=== PATIENT | female | born 1955 | race Caucasian/White ===

== ENCOUNTER → 2017-02-14 | Outpatient (CLI) | payer OTHER | LOC: BMCIMAGING 14:21 | DX: Z12.31 Encounter for screening mammogram for malignant neoplasm of breast (principal) | CPT/HCPCS: G0202 ==

== ENCOUNTER → 2017-07-23 | Outpatient (CLI) | payer OTHER | LOC: BMCIMAGING 14:51 | PROVIDERS: ATTEND Family Medicine | DX: M54.2 Cervicalgia (principal); R22.1 Localized swelling, mass and lump, neck | CPT/HCPCS: 76536-PO ==

== ENCOUNTER 2017-09-23 10:15 | Observation (INO) | payer OTHER ==
--- NOTE | 2017-09-23 10:26 | PDHPUP ---
History & Physical Update H&P update statement: This history and physical update is based on an assessment of the patient which was completed after admission or registration (within 24 hours), but prior to the surgery/procedure. H&P update: H&P reviewed & patient examined, no change in patient's condition since H&P completed
--- NOTE | 2017-09-23 10:27 | POSTOPPROG ---
Post Op Note Date of Operation: 09/23/17 Surgeon: Jordan Mantilla Financial Examiner: Wesley López Anesthesia: GET(General Endotracheal) Pre-op Diagnosis: Right thyroid tumor Post-op Diagnosis: Same Procedure: Total thyroidectomy, CLND, fiberoptic laryngoscopy Inf/Abcess present in the surg proc area at time of surgery?: No EBL: Minimal Specimen(s): thyroid, nodes
[2017-09-23] MEDS ORDERED: LR 1,000 ML IV ONE (10:42)
[2017-09-23] MEDS ORDERED: BUPIVACAINE 0.5% 30 ML SDV ONE (11:18)
[2017-09-23] MEDS ORDERED: PROPOFOL/EMULSION 500 MG/50 ML BOTTLE IV ONE (12:06)
[2017-09-23] MEDS ORDERED: MIDAZOLAM 2 MG/2 ML VIAL ONE (12:07)
[2017-09-23] MEDS ORDERED: fentaNYL 100 MCG/2 ML INJ ONE ×3 (12:07→15:07)
[2017-09-23] MEDS ORDERED: LR 500 ML IV PRN (12:59)
[2017-09-23] MEDS ORDERED: ALBUTEROL 3 ML DEYVIAL IH PRN (12:59)
[2017-09-23] MEDS ORDERED: DIAZEPAM 10 MG/2 ML SYR IVP PRN (12:59)
[2017-09-23] MEDS ORDERED: PROMETHAZINE HCL 25 MG/ML INJ IVP PRN (12:59)
[2017-09-23] MEDS ORDERED: NALOXONE HCL 0.4 MG/ML INJ IVP PRN (12:59)
[2017-09-23] MEDS ORDERED: METOCLOPRAMIDE 10 MG/2 ML VIAL IVP PRN (12:59)
[2017-09-23] MEDS ORDERED: ONDANSETRON 4 MG/2 ML VIAL IVP PRN ×2 (12:59→14:59)
[2017-09-23] MEDS ORDERED: PHENYLEPHRINE HCL 100 MCG/ML SYR IVP PRN (12:59)
[2017-09-23] MEDS ORDERED: DEXAMETHASONE 4 MG/ML VIAL IVP PRN (12:59)
--- NOTE | 2017-09-23 12:59 | PDANEPAE ---
ANE Past Medical History - Cardiovascular History Hx Hypertension: Yes Hx Arrhythmias: No Hx Chest Pain: No Hx Coronary Artery / Peripheral Vascular Disease: No Hx CHF / Valvular Disease: No Hx Palpitations: No Cardiovascular History Comment: on Crestor - Pulmonary History Hx COPD: No Hx Asthma/Reactive Airway Disease: No Hx Recent Upper Respiratory Infection: No Hx Oxygen in Use at Home: No Hx Sleep Apnea: No Sleep Apnea Screening Result - Last Documented: Negative - Neurologic History Hx Cerebrovascular Accident: No Hx Seizures: No Hx Dementia: No - Endocrine History Hx Diabetes: Yes Endocrine History Comment: NIDDM type 2- well controlled - Renal History Hx Renal Disorders: No - Liver History Hx Hepatic Disorders: No - Neurological & Psychiatric Hx Hx Neurological and Psychiatric Disorders: No - Cancer History Hx Cancer: Yes Cancer History Comment: papilarry thryoid CA - Congenital Disorder History Hx Congenital Disorders: No - GI History Hx Gastrointestinal Disorders: Yes Gastrointestinal History Comment: diverticulitis-April "infected" - Other Health History Other Health History: thyroid mass-nodule. - Chronic Pain History Chronic Pain: No - Surgical History Prior Surgeries: R trigger finger/carpal tunl 2-17. T.L. 1991 ANE Review of Systems Review of Systems: - Exercise capacity METS (RN): 4 METS ANE Patient History - Allergies Allergies/Adverse Reactions: No Known Allergies Allergy (Unverified 09/15/17 11:43) - Home Medications Home Medications: Aspirin 81mg (*) 09/15/17 [Last Taken 09/14/17 06:00] Levothyroxine 09/15/17 [Last Taken 09/22/17 09:00] Lisinopril 09/15/17 [Last Taken 09/22/17 09:00] Metformin HCl 09/15/17 [Last Taken 09/22/17 19:00] Multivitamin 09/15/17 [Last Taken 09/16/17] Rosuvastatin Calcium 09/15/17 [Last Taken 09/22/17 09:00] - NPO status NPO Since - Liquids (Date): 09/22/17 NPO Since - Liquids (Time): 19:00 NPO Since - Solids (Date): 09/22/17 NPO Since - Solids (Time): 19:00 - Smoking Hx Smoking Status: Never smoked ANE Labs/Vital Signs - Vital Signs Blood Pressure: 135/69 Heart Rate: 85 Respiratory Rate: 17 O2 Sat (%): 94 Height: 162.56 cm Weight: 88.451 kg ANE Physical Exam - Airway Neck exam: FROM, increased neck circumference, short neck Mallampati Score: Class 2 Mouth exam: normal dental/mouth exam, small mouth opening - Pulmonary Pulmonary: no respiratory distress, no rales or rhonchi, clear to auscultation, reduced air movement - Cardiovascular Cardiovascular: regular rate and rhythym, no murmur, rub, or gallop - ASA Status ASA Status: II ANE Anesthesia Plan Anesthesia Plan: general endotracheal anesthesia
[2017-09-23] MEDS ORDERED: DEXAMETHASONE 4 MG/ML VIAL ONE (13:09)
[2017-09-23] MEDS ORDERED: ROCURONIUM 50 MG/5 ML VIAL ONE ×2 (13:09→13:26)
[2017-09-23] MEDS ORDERED: ONDANSETRON 4 MG/2 ML VIAL ONE (13:09)
[2017-09-23] MEDS ORDERED: LIDOCAINE 2% 5 ML SDV ONE (13:09)
[2017-09-23] MEDS ORDERED: LIDOCAINE 2% JELLY 5 ML TUBE ONE (13:09)
[2017-09-23] MEDS ORDERED: METOCLOPRAMIDE 10 MG/2 ML VIAL ONE (13:09)
[2017-09-23] MEDS ORDERED: SUGAMMADEX SODIUM 200 MG/2 ML VIAL IVP ONE (13:09)
[2017-09-23] MEDS ORDERED: DEXMEDETOMIDINE/NS 4MCG/ML 50 ML BTL IV ONE (13:19)
[2017-09-23] MEDS ORDERED: CALCIUM CHLORIDE 1 GM/10 ML INJ ONE (13:30)
[2017-09-23] MEDS ORDERED: ACETAMINOPHEN 325 MG TAB PO PRN (14:59)
[2017-09-23] MEDS ORDERED: HYDROCODONE/APAP 5/325 TAB PO PRN (14:59)
--- NOTE | 2017-09-23 14:59 | POSTANESTH ---
Post Anesthetic Evaluation Cardiovascular Status: Normal, Stable, Similar to Pre-Op Cond Respiratory Status: Normal, Stable, Similar to Pre-op Cond. Level of Consciousness/Mental Status: Mildly Sleepy, Arousable Pain Control: Adequate, Prn Tx Ordered Nausea/Vomiting Control: Adequate, Prn Tx Ordered Complications Possibly Related to Anesthesia: None Noted
[2017-09-23] MEDS: fentaNYL 100 MCG/2 ML INJ IVP PRN ×2 (15:10→15:21)
--- NOTE | 2017-09-23 17:03 | ASDISCHSUM ---
Discharge Information Plan Status:Home with No Needs Medically Cleared to Leave:09/22/2017 Discharge Date:09/22/2017 CM D/C Disposition:Home, Routine, Self-Care ADT D/C Disposition:Home, Routine, Self-Care Projected Discharge Date:09/23/2017 06:00 PM Transportation at D/C:Family Discharge Delay Reason: Follow-Up Date:09/23/2017 06:00 PM Discharge Slot: Final Diagnosis:THyroid neoplasm Placement Information Patient Contact Information Contact Name:KAPIL Relationship: Address:[facility] [address] City:[place] Alternate Phone: [facility]/Zip Code:[place] [address] Email: Financial Information Financial Class:HMO and PPO Plans Primary Plan Desc:[facility] SERVI Primary Plan Number:[id number] Secondary Plan Desc: Secondary Plan Number: Assessment Information Intervention Information
--- NOTE | 2017-09-23 17:04 | ASMTCMCOM ---
CM Note CM Note Notes: Patient discharging home following surgical procedure related to Thyroid neoplasm. Patient with no additional Case management needs apparent at this time. Date Signed: 09/23/2017 05:04 PM Electronically Signed By:LORI Burton
[2017-09-23] MEDS: KETOROLAC 15 MG/1 ML SDV IVP SCH ×2 (18:21→23:46)
--- NOTE | 2017-09-23 21:31 | GOP ---
[f rep st] OPERATIVE REPORT DATE OF OPERATION: 09/23/2017 SURGEON: Jordan Mantilla MD HUMAN SERVICES PROGRAM SPECIALIST: Wesley López MD. ANESTHESIA: General. ANESTHESIOLOGIST: Susana Peng MD. PREOPERATIVE DIAGNOSIS: Right thyroid tumor. POSTOPERATIVE DIAGNOSIS: Right thyroid tumor. PROCEDURE PERFORMED: 1. Total thyroidectomy with central lymph node dissection. 2. Flexible laryngoscopy. FINDINGS: See below. INDICATIONS: 61-year-old female with a right thyroid nodule. Fine-needle aspiration shows areas of atypia with suspicion for a possible papillary thyroid cancer. A BRAF V600 was present within the specimen. Given the heightened concern for papillary thyroid cancer and the options of marilynn versus total thyroidectomy, the patient has opted to proceed with a total gland removal at this time. Because of complaints of intermittent voice hoarseness, a flexible laryngoscopy is being completed simultaneously. Risks and benefits were explained including but not limited to bleeding, infection, benign and malignant differential diagnosis, tumor recurrence, recurrent laryngeal nerve injury, permanent hypothyroidism, hypoparathyroidism, as well as others. All questions were answered. She desires to proceed. DESCRIPTION OF PROCEDURE: Monitored anesthesia care was started. The oropharynx and nares were anesthetized with lidocaine. The fiberoptic scope was inserted through the nares, down toward the oropharynx. The vocal cords were identified, showing normal midline apposition with normal opening and closing with E and A phonation. The scope was withdrawn uneventfully. General anesthesia was subsequently induced. The neck was explored through a low collar incision after infiltration of local anesthetic. The platysma muscle was divided. Subplatysmal skin flaps were created to the cricothyroid membrane, clavicles, as well as sternocleidomastoid musculature. The midline strap muscles were along their raphe. The left marilynn neck cavity was initially unroofed. The gland was small in size without clinical nodularity. Both upper and lower pole parathyroid glands were easily identified and off the upper and lower pole thyroid capsules. Vascularity was able to be maintained throughout the dissection without need for future autotransplantation. A small diminutive recurrent laryngeal nerve was identified sitting posterior to the inferior thyroid artery and coursing into the cricothyroid muscle. At this point, the superior and inferior vascular pedicles were all circumferentially encompassed, divided with the ultrasonic dissector, as was the inferior thyroid artery. The gland was peeled from lateral to medial and taken across toward the isthmus. There was no significant pyramidal lobe. There were no notable Delphian lymph nodes present throughout this portion of the dissection. The right lobe was subsequently elevated in the operative field. Portions of the midline strap muscles were adherent to the capsule. The muscle tissue was left connected at this location. Again, the upper and lower pole parathyroid glands were identified. These were all small and diminutive in size. They were easily separable off the upper and lower pole portions of the thyroid capsule, maintaining vascularity at all times. The recurrent laryngeal nerve was identified. This was a more robust nerve on this side. This was in mirror image location coursing into the cricothyroid muscle just posterior to the inferior thyroid artery. At this point, both vascular pedicles were circumferentially encompassed and divided with the ultrasonic dissector, as was the inferior thyroid artery. The gland was peeled from lateral to medial and removed intact. Further neck exploration showed no significant adenopathy. The small amounts of residual fatty tissue were skeletonized from the level of the hyoid bone, coursing down toward the thymus and medial to the carotid sheath. Visible tissue was all skeletonized and sent as a permanent section. There was a notable paucity of tissue and no clinically suspicious adenopathy at any point. Satisfactory hemostasis was assured. Bilateral recurrent laryngeal nerves were confirmed intact. All 4 parathyroid glands were also confirmed pink and viable at the end of the case. The neck was closed in layers with absorbable suture, followed by Dermabond. The patient was taken recovery room, extubated, in good condition. /[id number]/MODL MTDD
[2017-09-24 05:21] VITALS: RESP 18
[2017-09-24] MEDS: KETOROLAC 15 MG/1 ML SDV IVP SCH (06:09)
--- NOTE | 2017-09-24 07:35 | SOAPPROG ---
SOAP Progress Note Assessment/Plan: Assessment:no overnight issues. pain controlled. no swallowing concerns. avss. ca 9.4. neck flat. incision clean. no chovstek. doing well. home today Plan: 09/24/17 07:34 Objective: Vital Signs Temp Pulse Resp BP Pulse Ox 36.8 C 78 18 97/65 L 93 09/24/17 05:20 09/24/17 05:20 09/24/17 05:20 09/24/17 05:20 09/24/17 05:20 09/23/17 09/24/17 09/25/17 05:59 05:59 05:59 Intake Total 1630 Output Total 50 Balance 1580 ICD10 Worksheet Patient Problems: Problems Problem Status Onset Thyroid neoplasm Acute
[2017-09-24 09:04] VITALS: BP 111/63; PULSE 80; TEMP 98.9; O2SAT 92
[2017-09-28] MEDS ORDERED: IBUPROFEN 600 MG TAB PO SCH (18:00)
== END 2017-09-24 10:41 | disposition home or self-care (01) ==
LOC: F3N 10:15 → F1N 16:03
PROVIDERS: ADMIT Surgery; ATTEND Surgery
PROC: 07T10ZZ Resection of Right Neck Lymphatic, Open Approach (ICD-10-PCS; principal; 2017-09-23 11:45)
PROC: 0GTH0ZZ Resection of Right Thyroid Gland Lobe, Open Approach (ICD-10-PCS; principal; 2017-09-23 11:45)
PROC: 0CJS8ZZ Inspection of Larynx, Via Natural or Artificial Opening Endoscopic (ICD-10-PCS; principal; 2017-09-23 11:45)
DX: C73 Malignant neoplasm of thyroid gland (principal); E11.9 Type 2 diabetes mellitus without complications; I10 Essential (primary) hypertension; E03.9 Hypothyroidism, unspecified
CPT/HCPCS: 31575; 60252; G0378; J0171; J1100; J1885; J2250; J2370; J2405; J2704; J2765; J3010

== ENCOUNTER → 2018-03-10 | Outpatient (CLI) | payer OTHER | LOC: FIMAGING 10:46 | PROVIDERS: ATTEND Family Medicine | DX: Z12.31 Encounter for screening mammogram for malignant neoplasm of breast (principal) ==

== ENCOUNTER → 2018-03-20 | Outpatient (CLI) | payer OTHER | LOC: FIMAGING 12:43 | PROVIDERS: ATTEND Internal Medicine Endocrinology, Diabetes & Metabolism | DX: Z08 Encounter for follow-up examination after completed treatment for malignant neoplasm (principal); Z85.850 Personal history of malignant neoplasm of thyroid ==

== ENCOUNTER → 2019-03-11 | Outpatient (CLI) | payer OTHER | LOC: FIMAGING 12:45 | PROVIDERS: ATTEND Family Medicine | DX: Z12.31 Encounter for screening mammogram for malignant neoplasm of breast (principal) ==